=== PATIENT | male | born 1950 | race Two or more races ===

== ENCOUNTER → 2018-03-11 | Outpatient (CLI) | payer MEDICARE, BC ==
--- NOTE | 2018-03-11 10:16 | US ---
EXAMINATION TYPE: US kidneys/renal and bladder DATE OF EXAM: 03/11/2018 COMPARISON: NONE CLINICAL HISTORY: R31.9 HEMATURIA. EXAM MEASUREMENTS: Right Kidney: 10.9 x 5.6 x 4.9 cm Left Kidney: 11.6 x 4.8 x 4.4 cm Right Kidney: No hydronephrosis or masses seen Left Kidney: No hydronephrosis or masses seen Bladder: Decompressed Bilateral Jets seen: Yes There is no evidence for hydronephrosis at this point in time. No nephrolithiasis is seen. No lexii s are identified. The urinary bladder is anechoic. Bilateral ureteral jets are seen. Circumferentia l urinary bladder wall thickening is likely due to decompression. IMPRESSION: There is circumferential urinary bladder wall thickening however the urinary bladder is decompressed, likely accounting for this finding. No hydronephrosis or nephrolithiasis is seen. No solid renal mas ses identified.
== END | disposition home or self-care (01) ==
LOC: RADUSWWP 08:12
PROVIDERS: ATTEND Urology
DX: N32.89 Other specified disorders of bladder (principal); R31.9 Hematuria, unspecified
CPT/HCPCS: 76770